=== PATIENT | female | born 1930 | race Native Hawaiian/Other Pacific Islander ===

== ENCOUNTER 2017-08-20 08:13 | Inpatient (IN) | payer OTHER ==
[~2017-08-20] VITALS: Ht 71.1 cm; Wt 62.3 kg
[2017-08-20 07:00] VITALS: BP 98/76; TEMP 97.7
[2017-08-20 20:00] VITALS: BP 99/40; TEMP 98
[2017-08-20 20:20] VITALS: BP 99/40; TEMP 98
== END 2017-08-21 17:00 | disposition expired | DRG 756 ==
LOC: MED/SURG 08:13
DX: C79.82 Secondary malignant neoplasm of genital organs (principal); R09.2 Respiratory arrest; K59.09 Other constipation